=== PATIENT | female | born 1960 | race Caucasian/White ===

== ENCOUNTER 2022-03-18 06:45 | Day surgery (SDC) | payer BC ==
[2022-03-14 14:57] VITALS: BMI 30.8
[~2022-03-18 06:45] MED LIST: ACETAMINOPHEN TAB 500 MG TAB PO PRN; HEPARIN SODIUM,PORCINE/PF 5,000 UNIT/0.5 ML SYRINGE SQ PRN; Pre Op ABX Message 1 EACH MISC MISCELLANE ONE
[2022-03-18] MEDS ORDERED: SCOPOLAMINE 1 MG/72 HR PATCH TRANSDERM ONE (07:09)
[2022-03-18] MEDS ORDERED: ONDANSETRON 4 MG/2 ML VIAL IVP ONE (07:09)
[2022-03-18] MEDS ORDERED: LACTATED RINGERS 1,000 ML IV SCH (07:09)
[2022-03-18] MEDS ORDERED: HYDROmorphone 0.5 MG/0.5 ML SYRINGE IVP PRN (07:09)
[2022-03-18] MEDS ORDERED: DEXAMETHASONE SOD PHOSPHATE 4 MG/ML 1 ML VIAL IV ONE (07:09)
[2022-03-18] MEDS ORDERED: LIDOCAINE 1% (10MG/ML) FOR IV START INTRADERMA PRN (07:09)
--- NOTE | 2022-03-18 07:22 | P.GSHP ---
History of Present Illness H&P Date: 03/18/22 Chief Complaint: Right-sided breast cancer 61-year-old female recently diagnosed with stage I right breast invasive ductal carcinoma. Recent mammogram and ultrasound show a suspicious lesion right breast upper inner quadrant. 8 mm on ultrasound 1.5 cm on mammogram. She is asymptomatic. Recent core biopsy shows invasive ductal carcinoma moderately differentiated ER positive, HER-2 negative, HI negative. Patient was sent for genetic testing. No actionable genetic mutation identified. Patient interested in breast conservation. Past Medical History Past Medical History: Cancer, Hyperlipidemia, Hypertension Additional Past Medical History / Comment(s): HX BREAST CANCER History of Any Multi-Drug Resistant Organisms: None Reported Past Surgical History: Breast Surgery, Section Additional Past Surgical History / Comment(s): RT BREAST BX. COLONOSCOPY. C- SEC X 2 Past Anesthesia/Blood Transfusion Reactions: Motion Sickness, Postoperative Nausea & Vomiting (PONV) Smoking Status: Former smoker - Past Family History Mother Family Medical History: Cancer Additional Family Medical History / Comment(s): BREAST Medications and Allergies Home Medications Medication Instructions Recorded Confirmed Type Atorvastatin [Lipitor] 80 mg PO HS 03/14/22 03/18/22 History Citalopram Hydrobromide 10 mg PO HS 03/14/22 03/18/22 History [Citalopram HBr] lisinopriL [Zestril] 20 mg PO DAILY 03/14/22 03/18/22 History metFORMIN HCL ER [Glucophage XR] 1,000 mg PO BID 03/14/22 03/18/22 History Allergies Allergy/AdvReac Type Severity Reaction Status Date / Time No Known Allergies Allergy Verified 03/14/22 14:49 Surgical - Exam Vital Signs Temp Pulse Resp BP Pulse Ox 98.1 F 61 16 134/68 98 03/18/22 07:15 03/18/22 07:15 03/18/22 07:15 03/18/22 07:15 03/18/22 07:15 Physical exam: General: Well-developed, well-nourished HEENT: Normocephalic, sclerae nonicteric Right breast: Hematoma at biopsy site upper outer quadrant, no adenopathy, no masses Left breast: No masses, no adenopathy Abdomen: Nontender, nondistended Extremities: No edema Neuro: Alert and oriented Assessment and Plan (1) Breast cancer, right Narrative/Plan: 61-year-old female with stage I right breast cancer. Surgical options discussed with patient in detail both at the time of her initial office visit and also by phone after her case was discussed at our multidisciplinary tumor board. Patient remains interested in breast conservation. We'll proceed with right breast wire localization lumpectomy with sentinel lymph node biopsy/injection at this time. Risks of bleeding, infection, scarring, numbness, dimpling, seroma, lymphedema, nerve injury, possible need for further surgery, recurrence reviewed. She understands and wishes to proceed. Current Visit: Yes Status: Acute Code(s): C50.911 - MALIGNANT NEOPLASM OF UNSP SITE OF RIGHT FEMALE BREAST SNOMED Code(s): 567076271
[2022-03-18 07:27] LABS: Glucose,Whole Blood 103 mg/dL (70-110)
[2022-03-18] MEDS ORDERED: ALPRAZolam 0.5 MG TAB ONE (07:52)
[2022-03-18] MEDS ORDERED: ALPRAZolam 0.5 MG TAB PO ONE (07:55)
[2022-03-18] MEDS ORDERED: LIDOCAINE 1% INJ 10MG/ML (20 ML MDV) SQ ONE (08:25)
[2022-03-18] MEDS ORDERED: fentaNYL (PF) 50 MCG/ML 2 ML AMP ONE (09:18)
[2022-03-18] MEDS ORDERED: PROPOFOL 10 MG/ML 20 ML VIAL IV ONE (09:18)
[2022-03-18] MEDS ORDERED: LIDOCAINE 2% INJ 20 MG/ML (2 ML VIAL) ONE (09:18)
[2022-03-18] MEDS ORDERED: PHENYLEPHRINE-0.9% NACL SYG 1,000 MCG/10 ML SYRINGE ONE (09:18)
[2022-03-18] MEDS ORDERED: ePHEDrine 50 MG/ML 1 ML VIAL ONE (09:18)
[2022-03-18] MEDS ORDERED: MIDAZOLAM 2 MG/2 ML VIAL ONE (09:18)
[2022-03-18] MEDS ORDERED: SUCCINYLCHOLINE CHLORIDE 200 MG/10 ML VIAL IV ONE (09:18)
[2022-03-18] MEDS ORDERED: SODIUM CHLORIDE 0.9% 100 ML with ceFAZolin 2,000 MG IV ONE ×2 (09:31)
[2022-03-18] MEDS ORDERED: METHYLENE BLUE 10 MG/ML (10 ML VIAL) INJ ONE (09:35)
[2022-03-18] MEDS ORDERED: BUPIVACAIN-EPI 0.25%-1:200,000 30 ML VIAL SQ ONE (09:53)
[2022-03-18] MEDS ORDERED: HYDROcodone/APAP 5-325MG 1 EACH TAB PO PRN (10:59)
[2022-03-18] MEDS ORDERED: NALOXONE 0.4 MG/ML 1 ML VIAL IV PRN (10:59)
[2022-03-18] MEDS ORDERED: ONDANSETRON 4 MG/2 ML VIAL IVP PRN (10:59)
[2022-03-18] MEDS ORDERED: PROMETHAZINE 25 MG TAB PO PRN (10:59)
--- NOTE | 2022-03-18 11:05 | P.OP ---
Date of Procedure: 03/18/22 Procedure(s) Performed: PREOPERATIVE DIAGNOSIS: Right breast cancer POSTOPERATIVE DIAGNOSIS: Same PROCEDURE: Right Breast wire localization lumpectomy with sentinel lymph node biopsy SURGEON: [place] EBL: Minimal ANESTHESIA: General COMPLICATIONS: None OPERATIVE PROCEDURE: Patient was placed on the operating room table in the supine position. 2 mL of methylene blue was injected into the subareolar space. The breast was then massaged for 5 minutes. The breast was prepped and draped in usual sterile fashion. The right axilla was addressed at that time. The hot spot in the right axilla was identified. A small curvilinear incision was made using the scalpel. Dissection down through the subcutaneous tissues took place using electrocautery. Using the neoprobe I identified a total of 3 sentinel lymph nodes. 2 of these were blue in color. These had benign exam characteristics. These were all removed and sent to pathology for permanent sectioning. The surgical site was inspected and no bleeding was seen. The subcutaneous tissues were closed using 3-0 Vicryl sutures. The skin was closed using 4-0 Monocryl sutures. The wire entrance site was then addressed. This was present at the 1:00 location. A curvilinear incision was made adjacent to the wire entrance site. I followed the wire down into the breast tissue. An adequate lumpectomy specimen then took place around the wire. Margins of 1.5-2 cm worth attempted to be achieved. Palpation of the specimen suggested that the superior and anterior margins were somewhat close. I took an additional margin superiorly and anteriorly and these margins were painted the appropriate color on the new margin side. The initial specimen was also painted the appropriate 6 colors. Clips were used to identify the lumpectomy cavity. The clip was confirmed to be within the lumpectomy specimen by radiology. The subcutaneous tissues were closed using 3-0 Vicryl sutures. The skin was closed using a running 4-0 Monocryl stitch. Skin glue was then applied. DISPOSITION: Stable to recovery room
[2022-03-18 11:17] VITALS: TEMP 97.5
--- NOTE | 2022-03-18 11:19 | NM ---
EXAMINATION TYPE: NM sentinel node injection DATE OF EXAM: 03/18/2022 COMPARISON: 01/15/2022 mammogram HISTORY: 61-year-old female C50.919, biopsy proven right breast cancer. TECHNIQUE AND FINDINGS: The procedure of sentinel lymph node injection was explained to the patient. The benefits, alternatives, and risks were discussed. An informed consent was then obtained. Overlying skin is cleaned with sterile alcohol. Following this, 483 uCi Tc99m Tilmanocept was inject ed in the upper outer aspect of the nipple intradermally. The patient tolerated the procedure well without any immediate complication. The patient was kept in the radiology department for short stay after the procedure and then taken to surgery for surgical p rocedure what is presumed intraoperative gamma probe will be used for sentinel lymph node detection. IMPRESSION: Right breast radiotracer injection for sentinel node localization as above.
[2022-03-18 12:10] VITALS: RESP 18
[2022-03-18 12:29] VITALS: BP 128/75
[2022-03-18 14:41] VITALS: PULSE 74
== END 2022-03-18 12:48 | disposition home or self-care (01) ==
LOC: OR 06:45
PROVIDERS: ATTEND Surgery
DX: C50.911 Malignant neoplasm of unspecified site of right female breast (principal); Z17.0 Estrogen receptor positive status [ER+]; E11.69 Type 2 diabetes mellitus with other specified complication; E78.5 Hyperlipidemia, unspecified; I10 Essential (primary) hypertension; F32.A Depression, unspecified; F41.9 Anxiety disorder, unspecified; Z79.84 Long term (current) use of oral hypoglycemic drugs; Z79.899 Other long term (current) drug therapy; Z87.891 Personal history of nicotine dependence; Z80.3 Family history of malignant neoplasm of breast
CPT/HCPCS: 38900; 19301; 38525; 88342; 88307; 88341; 77065; 76098; 19285; 38792; C1819; A9520; J2250; J0330; J1100; J2405; J0690; J2001 ×2; Q9968; J3010; J2370; J2704; J1170; J1644

== ENCOUNTER → 2022-07-19 | Outpatient (CLI) | payer BC ==
--- NOTE | 2022-07-19 12:12 | BD ---
EXAMINATION TYPE: Axial Bone Density DATE OF EXAM: 07/19/2022 COMPARISON: NONE CLINICAL HISTORY: 61 years year old Female. ICD-10 CODE: M89.9 DISORDER OF BONE, UNSPECIFIED Height: 65 IN Weight: 208 LBS RISK FACTORS HISTORY OF: Active: YES Postmenopausal woman: AGE 48 MEDICATIONS: Additional Medications: VIT D, METFORMIN, LISINOPRIL, ATORVASTATIN, CELEXA Additional History: BREAST CANCER WITH RADIATION EXAM MEASUREMENTS: Bone mineral densitometry was performed using the [employer] System. Bone mineral density as measured about the Lumbar spine is: ----- L1-L4(G/cm2): 1.328 T Score Values are as follows: ----- L1: 0.6 ----- L2: 1.3 ----- L3: 1.7 ----- L4: 1.1 ----- L1-L4: 1.2 Bone mineral density BASELINE Bone mineral density about the R hip (g/cm2): 0.882 Bone mineral density about the L hip (g/cm2): 0.849 T Score values are as follows: -----R Neck: -1.1 -----L Neck: -1.4 -----R Total: -1.3 -----L Total: -1.0 Bone mineral density BASELINE FRAX%s: The graph provided illustrates a 7.2 chance for a major osteoporotic fx and a 0.5 chance for the hips probability for fx in 10 years time. IMPRESSION: Osteopenia (T Score between -2.5 and -1). There is slightly increased risk of fracture and the patient may be considered for treatment. Re-Screen 2-5 years. NOTE: T-SCORE=SD OF THE YOUNG ADULT MEAN.
== END | disposition home or self-care (01) ==
LOC: RADBDWWP 11:10
PROVIDERS: ATTEND Internal Medicine Hematology & Oncology
DX: M85.89 Other specified disorders of bone density and structure, multiple sites (principal)
CPT/HCPCS: 77080

== ENCOUNTER → 2023-07-08 | Outpatient (CLI) | payer BC ==
[2023-07-08 18:16] LABS: Basophils # (A) 0.04 X 10*3/uL (0.00-0.10); Basophils % (A) 0.7 %; Eosinophils # (A) 0.15 X 10*3/uL (0.04-0.35); Eosinophils % (A) 2.4 %; HCT 45.3 % (37.2-46.3); HGB 14.5 g/dL (12.0-15.0); Lymphocytes # (A) 2.02 X 10*3/uL (0.90-5.00); Lymphocytes % (A) 32.9 %; MCH 29.8 pg (27.0-32.0); MCV 93.2 FL (80.0-97.0); Mean Platelet Volume 11.5 FL (9.5-12.2); Monocytes # (A) 0.41 X 10*3/uL (0.20-1.00); Monocytes % (A) 6.7 %; NRBC Per 100 WBC 0 X 10*3/uL (0.00-0.01); Neutrophils # (A) 3.51 X 10*3/uL (1.80-7.70); Neutrophils % (A) 57.1 %; Platelet Count 224 X 10*3/uL (140-440); RBC 4.86 X 10*6/uL (4.10-5.20); RDW 14.8 % (11.5-14.5); WBC 6.14 X 10*3/uL (4.50-10.00)
[2023-07-08 18:41] LABS: BUN/Creat Ratio 23.17 Ratio (12.00-20.00); Blood Urea Nitrogen 13.9 mg/dL (9.0-27.0); Cancer Antigen 153 7.7 U/mL (0.0-32.3); Glucose 143 mg/dL (70-110)
[2023-07-08 18:42] LABS: ALT 41 U/L (8-44); AST 20 U/L (13-35); Albumin 4.4 g/dL (3.8-4.9); Alkaline Phosphatase 75 U/L (41-126); Calcium 10.3 mg/dL (8.7-10.3); Carbon Dioxide 26.8 mmol/L (21.6-31.8); Chloride 103 mmol/L (96-109); Globulin 2.2 g/dL (1.6-3.3); Potassium 4.9 mmol/L (3.5-5.5); Sodium 140 mmol/L (135-145); Total Bilirubin 0.3 mg/dL (0.3-1.2); Total Protein 6.6 g/dL (6.2-8.2)
== END | disposition home or self-care (01) ==
LOC: LABWHC1 13:01
PROVIDERS: ATTEND Internal Medicine Hematology & Oncology
DX: C50.211 Malignant neoplasm of upper-inner quadrant of right female breast (principal); I10 Essential (primary) hypertension; E78.5 Hyperlipidemia, unspecified; Z71.3 Dietary counseling and surveillance
CPT/HCPCS: 36415; 80053; 85025; 86300

== ENCOUNTER → 2024-07-20 | Outpatient (CLI) | payer BC ==
--- NOTE | 2024-07-20 12:26 | BD ---
EXAMINATION TYPE: Axial Bone Density DATE OF EXAM: 07/20/2024 CLINICAL HISTORY: 63 years old Female. ICD-10 CODE: C50.211 BREAST CANCER; M89.9 Disorder of bone , Additional History: Height: 5 ft 6 in Weight: 233 FRAX RISK QUESTIONS: Alcohol (3 or more units per day): no Family History (Parent hip fracture): no Glucocorticoids (More than 3mos): no (Ex: prednisone, prednisolone,ethylprednisolone, dexamethasone, and hydrocortisone). History of Fracture in Adulthood: no Secondary Osteoporosis: 1. Type 1 Diabetes: no 2. Hyperthyroidism: no 3. Menopause before 45: no 4. Malnutrition: no 5. Chronic liver disease: no Rheumatoid Arthritis: no Current Tobacco Use: former RISK FACTORS HISTORY OF: Surgery to Spine/Hip(right/left)/Wrist (right/left): no MEDICATIONS: Thyroid Medications: none Osteoporosis Medications: none EXAM MEASUREMENTS: Bone mineral densitometry was performed using the [employer] System. Bone mineral density as measured about the Lumbar spine is: ----- L1-L4(G/cm2): 1.313 T Score Values are as follows: ----- L1: 0.5 ----- L2: 0.9 ----- L3: 2.3 ----- L4: 0.6 ----- L1-L4: 1.1 Z Score Values are as follows: ----- L1: 0.7 ----- L2: 1.1 ----- L3: 2.4 ----- L4: 0.7 ----- L1-L4: 1.3 Bone mineral density has: decreased -1.1 % since study of: 2021 Bone mineral density about the R hip (g/cm2): 0.823 Bone mineral density about the L hip (g/cm2): 0.841 T Score values are as follows: -----R Neck: -1.5 -----L Neck: -1.4 -----R Total: -1.7 -----L Total: -1.4 Z Score values are as follows: -----R Neck: -0.9 -----L Neck: -0.9 -----R Total: -1.5 -----L Total: -1.2 Bone mineral density has: decreased -5.4 % since study of: 2021 FRAX%s: The graph provided illustrates a 7.6 % chance for a major osteoporotic fx and a 0.6 % chance for the hips probability for fx in 10 years time. IMPRESSION: Osteopenia (T Score between -2.5 and -1). There is slightly increased risk of fracture and the patient may be considered for treatment. Re-Screen 2-5 years. NOTE: T-SCORE=SD OF THE YOUNG ADULT MEAN. [facility], , 07/20/2024 12:23 PM
== END | disposition home or self-care (01) ==
LOC: RADBDWWP 08:54
PROVIDERS: ATTEND Internal Medicine Hematology & Oncology
DX: I10 Essential (primary) hypertension (principal); E78.5 Hyperlipidemia, unspecified; C50.211 Malignant neoplasm of upper-inner quadrant of right female breast; M89.9 Disorder of bone, unspecified; M81.8 Other osteoporosis without current pathological fracture; M85.80 Other specified disorders of bone density and structure, unspecified site; Z71.3 Dietary counseling and surveillance
CPT/HCPCS: 77080